=== PATIENT | male | born 1955 | race Two or more races ===

== ENCOUNTER → 2020-07-24 13:16 | Outpatient (CLI) | payer OTHER ==
[~2020-07-24 13:16] MED LIST: LOPRESSOR25 MG
== END | disposition home or self-care (01) ==
LOC: PPH VACUNA 13:16
DX: Z23 Encounter for immunization (principal)

== ENCOUNTER 2021-12-04 09:24 | Emergency (ER) | payer OTHER ==
[~2021-12-04] VITALS: Ht 170.2 cm; Wt 99.8 kg
[2021-12-04] MEDS ORDERED: ST. JOSEPH ASPI81 M2 PO (09:34)
[2021-12-04] MEDS ORDERED: ATORVASTATIN CA40 MG PO (09:34)
[2021-12-04] MEDS ORDERED: CARVEDILOL12.5 M1 PO (09:35)
== END 2021-12-04 12:12 | disposition home or self-care (01) ==
LOC: ER 09:24
DX: U07.1 COVID-19 (principal); I10 Essential (primary) hypertension; Z91.018 Allergy to other foods

== ENCOUNTER 2021-12-04 13:02 | Outpatient (CLI) | payer OTHER ==
[~2021-12-04 13:02] MED LIST changes: +ATORVASTATIN CA40 MG PO; +CARVEDILOL12.5 M1 PO; +ST. JOSEPH ASPI81 M2 PO
== END 2021-12-04 14:10 | disposition home or self-care (01) ==
LOC: ASH CLINIC 13:02 → PPH VACUNA 13:02
PROVIDERS: ATTEND General Practice
DX: U07.1 COVID-19 (principal)